=== PATIENT | female | born 1975 | race African-American/Black ===

== ENCOUNTER 2017-06-23 16:04 | Emergency (ER) | payer MEDICARE, OTHER ==
[~2017-06-23] VITALS: Ht 157.5 cm; Wt 68.0 kg
[2017-06-23] MEDS ORDERED: HYDR2TAB4 PO (16:35)
[2017-06-23] MEDS ORDERED: OXYCODONE (16:35)
[2017-06-23] MEDS: ONDANSETRON ODT 4 MG TAB.RAPDIS SL ONE (17:01)
[2017-06-23] MEDS: diphenhydrAMINE 50 MG/1 ML VIAL IM ONE (17:02)
[2017-06-23] MEDS: HYDROMORPHONE 1 MG/1 ML DISP.SYRIN IM ONE (17:04)
[2017-06-23] MEDS ORDERED: ONDANSETRON ODT 4 MG TAB.RAPDIS ONE (17:13)
[2017-06-23] MEDS ORDERED: diphenhydrAMINE 50 MG/1 ML VIAL ONE (17:13)
[2017-06-23] MEDS ORDERED: HYDROMORPHONE 4 MG/1 ML DISP.SYRIN ONE (17:14)
--- NOTE | 2017-06-23 17:17 | NUR ---
Patient discharged to home in stable conditon. Written and verbal after care instructions given. Patient verbalizes understanding of instructions.
[2017-06-23 17:18] VITALS: BP 110/74
== END 2017-06-23 17:17 | disposition home or self-care (01) ==
LOC: ER 16:05
DX: D57.00 Hb-SS disease with crisis, unspecified (principal); Z88.5 Allergy status to narcotic agent
CPT/HCPCS: 96372 ×2; 99284; A4663; J1170; J1200; Q0162

== ENCOUNTER 2017-07-28 18:10 | Inpatient (IN) | payer MEDICARE, OTHER ==
[~2017-07-28] VITALS: Ht 162.6 cm; Wt 72.1 kg
[~2017-07-28 18:10] MED LIST: HYDR2TAB4 PO; OXYCODONE
[2017-07-28] MEDS ORDERED: HYDR4TAB4 PO (18:32)
[2017-07-28] MEDS ORDERED: DIPH25CA83 PO (18:32)
[2017-07-28] MEDS ORDERED: OXYC-133 PO (18:34)
[2017-07-28] MEDS ORDERED: ACET-1467 PO (18:34)
[2017-07-28 20:18] LABS: HEMATOCRIT 25.9 % (31.2-41.9); MONOCYTES # (AUTO) 0.9 K/uL (2.0-10.0)
[2017-07-28 20:23] LABS: BASOPHILS # (AUTO) 0.2 K/uL (0.0-8.0); BASOPHILS % (AUTO) 2.7 % (0.0-2.0); EOSINOPHILS # (AUTO) 0.9 K/uL (0.0-0.7); HEMOGLOBIN 8.7 g/dL (10.9-14.3); LYMPHOCYTES # (AUTO) 3.4 K/uL (20.0-40.0); LYMPHOCYTES % (AUTO) 39.1 % (20.5-51.5); MEAN CORPUSCULAR HEMOGLOBIN 32.3 uug (24.7-32.8); MEAN CORPUSCULAR HGB CONC 34 g/dL (32.3-35.6); MEAN CORPUSCULAR VOLUME 96.1 fL (75.5-95.3); MONOCYTES % (AUTO) 10.2 % (0.0-11.0); NEUTROPHILS # (AUTO) 3.2 K/uL (1.8-8.9); PLATELET COUNT (AUTO) 131 K/uL (179-408); WHITE BLOOD COUNT (AUTO) 8.6 K/uL (3.8-11.8)
[2017-07-28 20:25] LABS: CREATININE 0.8 mg/dL (0.6-1.3); POTASSIUM 3.3 mmol/L (3.5-5.1)
[2017-07-28 20:31] LABS: BILIRUBIN,DIRECT 1.2 mg/dL (0.0-0.2); BILIRUBIN,TOTAL 2.5 mg/dL (0.2-1.0)
[2017-07-28 21:00] LABS: BAND % (MANUAL) 5 % (0-10); EOSINOPHILS % (MANUAL) 12 % (0-8); LYMPHOCYTES % (MANUAL) 42 % (20-40); MONOCYTES % (MANUAL) 11 % (2-10); NEUTROPHILS % (MANUAL) 30 % (42-75)
[2017-07-28] MEDS ORDERED: HYDROMORPHONE 1 MG/1 ML DISP.SYRIN IM ONE (21:15)
[2017-07-28] MEDS ORDERED: diphenhydrAMINE 50 MG/1 ML VIAL IM ONE (21:15)
[2017-07-28] MEDS ORDERED: ONDANSETRON 4 MG/2 ML VIAL IM ONE (21:15)
[2017-07-28] MEDS ORDERED: ASPIRIN 325 MG TABLET PO ONE (22:00)
[2017-07-28] MEDS ORDERED: ASPIRIN 325 MG TABLET ONE (22:18)
[2017-07-28] MEDS ORDERED: diphenhydrAMINE 50 MG/1 ML VIAL ONE (22:19)
[2017-07-28] MEDS ORDERED: ONDANSETRON 4 MG/2 ML VIAL ONE (22:19)
[2017-07-28] MEDS ORDERED: HYDROMORPHONE 2 MG/1 ML DISP.SYRIN ONE (22:19)
[2017-07-28 23:39] VITALS: BP 135/77
[2017-07-29] MEDS ORDERED: Z GUARD REMEDY PASTE 57 GM TUBE TOP PRN
[2017-07-29] MEDS ORDERED: HYDROMORPHONE HCL 2 MG TABLET PO PRN
[2017-07-29] MEDS ORDERED: MAGNESIUM HYDROXIDE 30 ML LIQUID UDC PO PRN
[2017-07-29] MEDS ORDERED: ONDANSETRON 4 MG/2 ML VIAL IV PRN
[2017-07-29] MEDS: IV NS 1000 ML 1,000 ML IV PRN ×2 (00:25→18:18)
[2017-07-29] MEDS ORDERED: OXYCODONE HCL 20 MG TAB.SR.12H PO ONE (00:30)
[2017-07-29] MEDS ORDERED: ACETAMINOPHEN 325 MG TABLET PO PRN ×2 (00:51)
[2017-07-29] MEDS: HYDROMORPHONE HCL 2 MG TABLET PO PRN ×6 (00:53→22:19)
[2017-07-29] MEDS: diphenhydrAMINE 50 MG/1 ML VIAL IV PRN ×4 (00:53→18:17)
[2017-07-29 04:44] VITALS: BP 118/79
[2017-07-29 08:08] LABS: BASOPHILS # (AUTO) 0.2 K/uL (0.0-8.0); BASOPHILS % (AUTO) 2.1 % (0.0-2.0); EOSINOPHILS % (AUTO) 10.1 % (0.0-7.0); HEMATOCRIT 22.9 % (31.2-41.9); LYMPHOCYTES # (AUTO) 4.9 K/uL (20.0-40.0); LYMPHOCYTES % (AUTO) 51.4 % (20.5-51.5); MEAN CORPUSCULAR HEMOGLOBIN 32.3 uug (24.7-32.8); MEAN CORPUSCULAR HGB CONC 33 g/dL (32.3-35.6); MONOCYTES # (AUTO) 0.9 K/uL (2.0-10.0); MONOCYTES % (AUTO) 9.7 % (0.0-11.0); NEUTROPHILS # (AUTO) 2.5 K/uL (1.8-8.9); NEUTROPHILS % (AUTO) 26.7 % (38.5-71.5); PLATELET COUNT (AUTO) 89 K/uL (179-408); WHITE BLOOD COUNT (AUTO) 9.5 K/uL (3.8-11.8)
[2017-07-29 08:22] LABS: RED BLOOD CELL COUNT(AUTO) 2.36 MIL/uL (3.63-4.92)
[2017-07-29 08:28] LABS: HEMOGLOBIN 7.6 g/dL (10.9-14.3)
[2017-07-29 08:36] LABS: BILIRUBIN,TOTAL 2.3 mg/dL (0.2-1.0); CREATININE 0.8 mg/dL (0.6-1.3); MAGNESIUM 1.7 mg/dL (1.8-2.4); PHOSPHOROUS 3.7 mg/dL (2.5-4.9); TOTAL PROTEIN, SERUM 7.2 g/dL (6.4-8.2)
[2017-07-29] MEDS: ASPIRIN EC 81 MG TABLET.DR PO SCH (10:16)
[2017-07-29] MEDS: FOLIC ACID 1 MG TABLET PO SCH (10:16)
[2017-07-29] MEDS: HYDROXYUREA 500 MG CAPSULE PO SCH (10:20)
[2017-07-29 11:24] VITALS: BP 109/53
[2017-07-29 11:40] LABS: BAND % (MANUAL) 2 % (0-10); EOSINOPHILS % (MANUAL) 6 % (0-8); LYMPHOCYTES % (MANUAL) 57 % (20-40); MONOCYTES % (MANUAL) 5 % (2-10); NEUTROPHILS % (MANUAL) 30 % (42-75)
[2017-07-29] MEDS: MAGNESIUM SULFATE/D5W 100 ML IV SCH ×2 (12:56→14:22)
[2017-07-29 14:55] LABS: *BILIRUBIN,URIN NEGATIVE (NEGATIVE); *BLOOD, URINE NEGATIVE (NEGATIVE); *CLARITY,URINE CLEAR (CLEAR); *KETONES,URINE NEGATIVE (NEGATIVE); *PROTEIN,URINE NEGATIVE (NEGATIVE); LEUKOCYTE ESTERASE ,URINE NEGATIVE (NEGATIVE); NITRITE, URINE NEGATIVE (NEGATIVE); PH,URINE 6.5 (5.0-8.0); UGLUCOSE NEGATIVE (NEGATIVE)
[2017-07-29 15:42] VITALS: BP 112/60
[2017-07-29 16:34] LABS: *COLOR,URINE DARK YELLOW (YELLOW)
[2017-07-29 16:39] LABS: SQUAMOUS EPITHELIAL CELL,UR FEW /HPF (NONE SEEN); WBC,URINE 0-3 /HPF (0-3)
[2017-07-29 20:00] VITALS: BP 113/64
[2017-07-29] MEDS: ZOLPIDEM 5 MG TABLET PO PRN (22:34)
[2017-07-30] VITALS: BP 115/64
[2017-07-30] MEDS: diphenhydrAMINE 50 MG/1 ML VIAL IV PRN ×5 (00:04→23:51)
[2017-07-30] MEDS: HYDROMORPHONE HCL 2 MG TABLET PO PRN ×4 (03:18→15:59)
[2017-07-30 04:00] VITALS: BP 134/72
[2017-07-30] MEDS: FOLIC ACID 1 MG TABLET PO SCH (08:03)
[2017-07-30] MEDS: ASPIRIN EC 81 MG TABLET.DR PO SCH (08:03)
[2017-07-30] MEDS: HYDROXYUREA 500 MG CAPSULE PO SCH (08:09)
[2017-07-30] MEDS: IV NS 1000 ML 1,000 ML IV PRN (08:09)
[2017-07-30 09:48] LABS: CARBON DIOXIDE 29 mmol/L (21-32); CHLORIDE 105 mmol/L (98-107); CREATININE 0.6 mg/dL (0.6-1.3); GLUCOSE 92 mg/dL (74-106); MAGNESIUM 1.5 mg/dL (1.8-2.4); POTASSIUM 3.8 mmol/L (3.5-5.1); UREA NITROGEN, BLOOD 10 mg/dL (7-18)
[2017-07-30] MEDS: MAGNESIUM SULFATE/D5W 100 ML IV SCH ×2 (10:48→11:56)
[2017-07-30 11:25] VITALS: BP 141/70
[2017-07-30 15:58] VITALS: BP 133/75
[2017-07-30] MEDS ORDERED: HYDROMORPHONE HCL 2 MG TABLET PO PRN ×2 (17:45)
[2017-07-30] MEDS: HYDROMORPHONE 2 MG/1 ML DISP.SYRIN IV PRN ×3 (18:01→23:52)
[2017-07-30 19:45] VITALS: BP 123/73
[2017-07-31] VITALS (7 sets, daily range): BP systolic 123–159; BP diastolic 67–86
[2017-07-31] MEDS: IV NS 1000 ML 1,000 ML IV PRN ×2 (00:08→13:57)
[2017-07-31] MEDS: ZOLPIDEM 5 MG TABLET PO PRN ×2 (00:53→21:04)
[2017-07-31] MEDS: HYDROMORPHONE 2 MG/1 ML DISP.SYRIN IV PRN ×6 (03:04→22:05)
[2017-07-31] MEDS: diphenhydrAMINE 50 MG/1 ML VIAL IV PRN ×3 (05:55→19:42)
[2017-07-31 06:45] LABS: CREATININE 0.8 mg/dL (0.6-1.3); MAGNESIUM 1.5 mg/dL (1.8-2.4)
[2017-07-31] MEDS: ASPIRIN EC 81 MG TABLET.DR PO SCH (08:20)
[2017-07-31] MEDS: FOLIC ACID 1 MG TABLET PO SCH (08:20)
[2017-07-31] MEDS: HYDROXYUREA 500 MG CAPSULE PO SCH (08:22)
[2017-07-31] MEDS: MAGNESIUM SULFATE/D5W 100 ML IV SCH ×4 (13:55→17:10)
[2017-07-31] MEDS ORDERED: FOLI1TAB16 PO (23:55)
[2017-07-31] MEDS ORDERED: HYDR500C2 PO (23:55)
[2017-08-01] VITALS: BP 136/73
[2017-08-01] MEDS: HYDROMORPHONE 2 MG/1 ML DISP.SYRIN IV PRN ×5 (01:14→15:31)
[2017-08-01] MEDS: diphenhydrAMINE 50 MG/1 ML VIAL IV PRN ×3 (02:03→14:20)
[2017-08-01 04:00] VITALS: BP 144/78
[2017-08-01 06:43] LABS: CREATININE 0.7 mg/dL (0.6-1.3); MAGNESIUM 1.8 mg/dL (1.8-2.4); PHOSPHOROUS 3.5 mg/dL (2.5-4.9); POTASSIUM 4.8 mmol/L (3.5-5.1)
[2017-08-01 07:46] LABS: BASOPHILS # (AUTO) 0.2 K/uL (0.0-8.0); BASOPHILS % (AUTO) 2.9 % (0.0-2.0); EOSINOPHILS % (AUTO) 23.8 % (0.0-7.0); HEMATOCRIT 26.2 % (31.2-41.9); HEMOGLOBIN 8.8 g/dL (10.9-14.3); LYMPHOCYTES # (AUTO) 2.1 K/uL (20.0-40.0); MEAN CORPUSCULAR HEMOGLOBIN 32.3 uug (24.7-32.8); MEAN CORPUSCULAR HGB CONC 34 g/dL (32.3-35.6); MEAN CORPUSCULAR VOLUME 96.5 fL (75.5-95.3); MONOCYTES # (AUTO) 1.1 K/uL (2.0-10.0); MONOCYTES % (AUTO) 12.9 % (0.0-11.0); NEUTROPHILS # (AUTO) 2.8 K/uL (1.8-8.9); NEUTROPHILS % (AUTO) 34.4 % (38.5-71.5); PLATELET COUNT (AUTO) 122 K/uL (179-408); RED BLOOD CELL COUNT(AUTO) 2.71 MIL/uL (3.63-4.92); WHITE BLOOD COUNT (AUTO) 8.2 K/uL (3.8-11.8)
[2017-08-01 08:28] LABS: BAND % (MANUAL) 1 % (0-10); EOSINOPHILS % (MANUAL) 20 % (0-8); LYMPHOCYTES % (MANUAL) 42 % (20-40); MONOCYTES % (MANUAL) 10 % (2-10); NEUTROPHILS % (MANUAL) 27 % (42-75)
[2017-08-01] MEDS ORDERED: ASPIRIN EC 81 MG TABLET.DR PO SCH (09:00)
[2017-08-01] MEDS: IV NS 1000 ML 1,000 ML IV PRN (09:13)
[2017-08-01] MEDS: FOLIC ACID 1 MG TABLET PO SCH (09:23)
[2017-08-01] MEDS: HYDROXYUREA 500 MG CAPSULE PO SCH (09:24)
[2017-08-01 11:22] VITALS: BP 138/73
[2017-08-01 15:06] VITALS: BP 133/70
== END 2017-08-01 17:00 | disposition home or self-care (01) | DRG 811 ==
LOC: ER 18:10 → TELE 22:57
PROVIDERS: ADMIT Nurse Practitioner Acute Care; ATTEND Nurse Practitioner Acute Care
DX: D57.00 Hb-SS disease with crisis, unspecified (principal); I21.A1 Myocardial infarction type 2; D69.6 Thrombocytopenia, unspecified; E46 Unspecified protein-calorie malnutrition; E83.42 Hypomagnesemia; F11.23 Opioid dependence with withdrawal; Z68.27 Body mass index [BMI] 27.0-27.9, adult; Z87.891 Personal history of nicotine dependence; G89.4 Chronic pain syndrome; E87.6 Hypokalemia; R74.0 Nonspecific elevation of levels of transaminase and lactic acid dehydrogenase [LDH]; I51.7 Cardiomegaly; Z76.5 Malingerer [conscious simulation]
CPT/HCPCS: 36415; 70030-TC; 71045; 83735; 84100; 85025; 85730; 93005; 93307; A4663; J1170; J1200; J2405; J3475; J7030

== ENCOUNTER 2017-08-05 16:45 | Emergency (ER) | payer MEDICARE, OTHER ==
[~2017-08-05] VITALS: Ht 162.6 cm; Wt 68.0 kg
[~2017-08-05 16:45] MED LIST changes: +ACET-1467 PO; +DIPH25CA83 PO; +FOLI1TAB16 PO; -HYDR2TAB4 PO; +HYDR4TAB4 PO; +HYDR500C2 PO; -OXYCODONE
--- NOTE | 2017-08-05 17:14 | NUR ---
PATIENT WAS SEEN AND EVALUATED BY DR GALARZA IN ROOM 05A.
[2017-08-05] MEDS ORDERED: HYDROMORPHONE 1 MG/1 ML DISP.SYRIN IM ONE (17:15)
[2017-08-05] MEDS ORDERED: diphenhydrAMINE 50 MG/1 ML VIAL IM ONE (17:15)
--- NOTE | 2017-08-05 17:26 | NUR ---
Patient discharged to home in stable conditon. Written and verbal after care instructions given. Patient verbalizes understanding of instructions. Normal steady gait. No s/s distress.
[2017-08-05 17:27] VITALS: BP 144/75
[2017-08-05] MEDS ORDERED: HYDROMORPHONE 2 MG/1 ML DISP.SYRIN ONE (17:35)
[2017-08-05] MEDS ORDERED: diphenhydrAMINE 50 MG/1 ML VIAL ONE (17:35)
== END 2017-08-05 17:28 | disposition home or self-care (01) ==
LOC: ER 16:46
DX: D57.00 Hb-SS disease with crisis, unspecified (principal); Z88.5 Allergy status to narcotic agent
CPT/HCPCS: A4663; J1170; J1200

== ENCOUNTER 2017-08-05 18:44 | Emergency (ER) | payer MEDICARE, OTHER ==
[~2017-08-05] VITALS: Ht 165.1 cm; Wt 68.0 kg
--- NOTE | 2017-08-05 19:30 | NUR ---
RADHA STEVENS AT BEDSIDE FOR MSE.
[2017-08-05 20:07] LABS: BASOPHILS # (AUTO) 0.2 K/uL (0.0-8.0); BASOPHILS % (AUTO) 1.7 % (0.0-2.0); EOSINOPHILS # (AUTO) 0.4 K/uL (0.0-0.7); EOSINOPHILS % (AUTO) 4.6 % (0.0-7.0); HEMATOCRIT 28.1 % (31.2-41.9); HEMOGLOBIN 9.5 g/dL (10.9-14.3); LYMPHOCYTES # (AUTO) 5.7 K/uL (20.0-40.0); LYMPHOCYTES % (AUTO) 61.8 % (20.5-51.5); MEAN CORPUSCULAR HEMOGLOBIN 31.8 uug (24.7-32.8); MEAN CORPUSCULAR HGB CONC 34 g/dL (32.3-35.6); MEAN CORPUSCULAR VOLUME 94.3 fL (75.5-95.3); MONOCYTES # (AUTO) 0.7 K/uL (2.0-10.0); MONOCYTES % (AUTO) 7.7 % (0.0-11.0); NEUTROPHILS # (AUTO) 2.2 K/uL (1.8-8.9); NEUTROPHILS % (AUTO) 24.2 % (38.5-71.5); PLATELET COUNT (AUTO) 194 K/uL (179-408); RED BLOOD CELL COUNT(AUTO) 2.98 MIL/uL (3.63-4.92); WHITE BLOOD COUNT (AUTO) 9.1 K/uL (3.8-11.8)
--- NOTE | 2017-08-05 20:17 | NUR ---
PT STATES SHE IS UNABLE TO USE RESTROOM AT THE MOMENT. PENDING COLLECTION OF URINE SAMPLE.
[2017-08-05 20:22] LABS: BILIRUBIN,TOTAL 2.5 mg/dL (0.2-1.0); CREATININE 0.9 mg/dL (0.6-1.3); POTASSIUM 3.5 mmol/L (3.5-5.1); TOTAL PROTEIN, SERUM 8.7 g/dL (6.4-8.2)
[2017-08-05 20:24] LABS: BAND % (MANUAL) 3 % (0-10); EOSINOPHILS % (MANUAL) 7 % (0-8); LYMPHOCYTES % (MANUAL) 56 % (20-40); MONOCYTES % (MANUAL) 12 % (2-10); NEUTROPHILS % (MANUAL) 22 % (42-75)
--- NOTE | 2017-08-05 21:42 | NUR ---
PT RESTING IN A POSITION OF COMFORT W/ EYES CLOSED. NO SIGNS OF DISTRESS NOTED.
--- NOTE | 2017-08-05 22:04 | NUR ---
PT AMBULATED TO BATHROOM W/ STEADY GAIT. NO DISTRESS NOTED.
[2017-08-05 23:06] LABS: *BILIRUBIN,URIN 1+ (NEGATIVE); *BLOOD, URINE 2+ (NEGATIVE); *CLARITY,URINE SLIGHTLY CLOUDY (CLEAR); *COLOR,URINE AMBER (YELLOW); *KETONES,URINE NEGATIVE (NEGATIVE); *PROTEIN,URINE 1+ (NEGATIVE); LEUKOCYTE ESTERASE ,URINE NEGATIVE (NEGATIVE); NITRITE, URINE NEGATIVE (NEGATIVE); UGLUCOSE NEGATIVE (NEGATIVE)
[2017-08-05 23:13] LABS: BACTERIA,URINE FEW /HPF (NONE SEEN); WBC,URINE 0-3 /HPF (0-3)
[2017-08-05 23:14] LABS: SQUAMOUS EPITHELIAL CELL,UR MODERATE /HPF (NONE SEEN)
[2017-08-05] MEDS ORDERED: diphenhydrAMINE 50 MG CAPSULE PO ONE (23:30)
[2017-08-05] MEDS ORDERED: HYDROMORPHONE 1 MG/1 ML DISP.SYRIN IM ONE (23:30)
[2017-08-05] MEDS ORDERED: OXYCODONE/APAP 5-325 MG TABLET PO ONE (23:30)
--- NOTE | 2017-08-05 23:30 | NUR ---
Patient discharged to home in stable conditon. Written and verbal after care instructions given. Patient verbalizes understanding of instructions. Pt ambulated w/ steady gait from ER. Pt took all personal belongings. No distress noted.
[2017-08-05] MEDS ORDERED: HYDROMORPHONE 2 MG/1 ML DISP.SYRIN ONE (23:41)
[2017-08-05] MEDS ORDERED: diphenhydrAMINE 50 MG CAPSULE ONE (23:42)
[2017-08-06 01:13] VITALS: BP 156/89
== END 2017-08-06 01:14 | disposition home or self-care (01) ==
LOC: ER 18:45
DX: D57.00 Hb-SS disease with crisis, unspecified (principal); Z88.5 Allergy status to narcotic agent; R07.9 Chest pain, unspecified
CPT/HCPCS: 36415; 70030-TC; 71045; 85025; 93005; A4663; J1170; Q0163

== ENCOUNTER 2017-08-23 14:43 | Emergency (ER) | payer MEDICARE, OTHER ==
[~2017-08-23] VITALS: Ht 162.6 cm; Wt 68.0 kg
[~2017-08-23 14:43] MED LIST changes: -ACET-1467 PO
[2017-08-23] MEDS ORDERED: OXYC80TA40 PO (15:12)
[2017-08-23] MEDS ORDERED: METO50TA16 PO (15:13)
--- NOTE | 2017-08-23 17:00 | NUR ---
DR PACHECO AT BEDSIDE FOR EVAL. PATIENT IS AWAKE, ALERT, ORIENTED X4 IN NO DISTRESS.
[2017-08-23] MEDS ORDERED: HYDROMORPHONE 1 MG/1 ML DISP.SYRIN IM ONE (17:30)
[2017-08-23] MEDS ORDERED: diphenhydrAMINE 50 MG/1 ML VIAL IM ONE (17:30)
[2017-08-23] MEDS ORDERED: diphenhydrAMINE 50 MG/1 ML VIAL ONE (17:31)
[2017-08-23] MEDS ORDERED: HYDROMORPHONE 2 MG/1 ML DISP.SYRIN ONE (17:31)
--- NOTE | 2017-08-23 17:49 | NUR ---
PATIENT STATES HER BROTHER DROVE HER HERE AND WILL DRIVE HER BACK HOME. STATES SHE KNOWS NOT TO DRIVE WHEN ON NARCOTICS AND BENADRYL.
--- NOTE | 2017-08-23 18:22 | NUR ---
Patient discharged to home in stable conditon. Written and verbal after care instructions given. Patient verbalizes understanding of instructions.
== END 2017-08-23 18:23 | disposition home or self-care (01) ==
LOC: ER 14:44
DX: F11.23 Opioid dependence with withdrawal (principal); Z88.5 Allergy status to narcotic agent; Z79.891 Long term (current) use of opiate analgesic; Z79.899 Other long term (current) drug therapy
CPT/HCPCS: A4663; J1170; J1200

== ENCOUNTER 2017-10-29 22:02 | Inpatient (IN) | payer MEDICARE, OTHER ==
[~2017-10-29] VITALS: Ht 162.6 cm; Wt 74.5 kg
[~2017-10-29 22:02] MED LIST changes: -HYDR500C2 PO; +METO50TA16 PO; +OXYC80TA40 PO
[2017-10-29] MEDS ORDERED: ONDANSETRON ODT 4 MG TAB.RAPDIS ONE (22:28)
[2017-10-29] MEDS ORDERED: HYDROMORPHONE HCL 2 MG TABLET ONE (22:29)
[2017-10-29] MEDS ORDERED: diphenhydrAMINE 50 MG CAPSULE ONE (22:29)
[2017-10-29] MEDS ORDERED: ONDANSETRON ODT 4 MG TAB.RAPDIS SL ONE (22:30)
[2017-10-29] MEDS ORDERED: diphenhydrAMINE 50 MG CAPSULE PO ONE (22:30)
[2017-10-29] MEDS ORDERED: IV NORMAL SALINE 1000 ML BAG IV ONE (22:30)
[2017-10-29] MEDS ORDERED: HYDROMORPHONE HCL 2 MG TABLET PO ONE (22:30)
[2017-10-29 22:51] LABS: BASOPHILS # (AUTO) 0.2 K/uL (0.0-8.0); BASOPHILS % (AUTO) 1.4 % (0.0-2.0); EOSINOPHILS # (AUTO) 0.3 K/uL (0.0-0.7); EOSINOPHILS % (AUTO) 2.7 % (0.0-7.0); HEMATOCRIT 27.6 % (31.2-41.9); HEMOGLOBIN 9.5 g/dL (10.9-14.3); LYMPHOCYTES # (AUTO) 3.7 K/uL (20.0-40.0); LYMPHOCYTES % (AUTO) 32.5 % (20.5-51.5); MEAN CORPUSCULAR HEMOGLOBIN 29.2 uug (24.7-32.8); MEAN CORPUSCULAR HGB CONC 34 g/dL (32.3-35.6); MEAN CORPUSCULAR VOLUME 85.4 fL (75.5-95.3); MONOCYTES # (AUTO) 1.3 K/uL (2.0-10.0); MONOCYTES % (AUTO) 10.9 % (0.0-11.0); NEUTROPHILS % (AUTO) 52.5 % (38.5-71.5); PLATELET COUNT (AUTO) 122 K/uL (179-408); RED BLOOD CELL COUNT(AUTO) 3.23 MIL/uL (3.63-4.92); WHITE BLOOD COUNT (AUTO) 11.5 K/uL (3.8-11.8)
[2017-10-29 22:58] LABS: CREATININE 3.4 mg/dL (0.6-1.3); POTASSIUM 4.4 mmol/L (3.5-5.1)
[2017-10-29 23:03] LABS: BILIRUBIN,DIRECT 1.4 mg/dL (0.0-0.2); BILIRUBIN,TOTAL 2.9 mg/dL (0.2-1.0); TOTAL PROTEIN, SERUM 9.3 g/dL (6.4-8.2)
[2017-10-29] MEDS ORDERED: Z GUARD REMEDY PASTE 57 GM TUBE TOP PRN (23:45)
[2017-10-29] MEDS ORDERED: ACETAMINOPHEN 325 MG TABLET PO PRN (23:45)
[2017-10-29] MEDS ORDERED: FOLIC ACID 1 MG in IV DEXTROSE 5% 50 ML IV SCH (23:45)
[2017-10-29] MEDS ORDERED: ONDANSETRON 4 MG/2 ML VIAL IV PRN (23:45)
[2017-10-29] MEDS ORDERED: MAGNESIUM HYDROXIDE 30 ML LIQUID UDC PO PRN (23:45)
[2017-10-29 23:59] LABS: BAND % (MANUAL) 1 % (0-10); BASOPHILS % (MANUAL) 1 % (0-2); EOSINOPHILS % (MANUAL) 3 % (0-8); LYMPHOCYTES % (MANUAL) 13 % (20-40); MONOCYTES % (MANUAL) 14 % (2-10); NEUTROPHILS % (MANUAL) 68 % (42-75)
[2017-10-30] LABS: *BLOOD, URINE 2+ (NEGATIVE); *CLARITY,URINE CLEAR (CLEAR); *COLOR,URINE YELLOW (YELLOW); *KETONES,URINE NEGATIVE (NEGATIVE); *PROTEIN,URINE 2+ (NEGATIVE); LEUKOCYTE ESTERASE ,URINE NEGATIVE (NEGATIVE); NITRITE, URINE NEGATIVE (NEGATIVE); PH,URINE 5.5 (5.0-8.0); UGLUCOSE NEGATIVE (NEGATIVE)
[2017-10-30 00:03] LABS: *BILIRUBIN,URIN 1+ (NEGATIVE)
[2017-10-30 00:10] LABS: BACTERIA,URINE FEW /HPF (NONE SEEN); MUCUS,URINE FEW /LPF (0-FEW); SQUAMOUS EPITHELIAL CELL,UR FEW /HPF (NONE SEEN); WBC,URINE 0-3 /HPF (0-3)
[2017-10-30 00:47] VITALS: BP 113/51
[2017-10-30] MEDS: IV 1/2NS 1000 ML 1,000 ML IV PRN ×3 (01:01→17:00)
[2017-10-30 04:00] VITALS: BP 108/59
[2017-10-30] MEDS: HYDROMORPHONE HCL 2 MG TABLET PO SCH ×7 (04:49→20:14)
[2017-10-30] MEDS ORDERED: HYDROMORPHONE HCL 2 MG TABLET PO SCH (08:00)
[2017-10-30] MEDS: FOLIC ACID 1 MG TABLET PO SCH (08:35)
[2017-10-30] MEDS: HYDROCODONE/APAP 5-325MG TABLET PO PRN ×2 (08:35→22:25)
[2017-10-30] MEDS ORDERED: FOLIC ACID 1 MG in IV DEXTROSE 5% 50 ML IV SCH (09:00)
[2017-10-30] MEDS ORDERED: WARF7.5T23 PO (09:05)
[2017-10-30 09:28] LABS: BILIRUBIN,TOTAL 2.1 mg/dL (0.2-1.0); CREATININE 1.8 mg/dL (0.6-1.3); MAGNESIUM 2.3 mg/dL (1.8-2.4); PHOSPHOROUS 3.7 mg/dL (2.5-4.9); POTASSIUM 4.6 mmol/L (3.5-5.1); TOTAL PROTEIN, SERUM 7.2 g/dL (6.4-8.2)
[2017-10-30] MEDS: HYDROXYUREA 500 MG CAPSULE PO SCH (10:27)
[2017-10-30 10:46] LABS: *CREATININE,URINE 165.2 mg/dL (30-125); *URINE TOTAL PROTEIN RANDOM 111.8 mg/dL (<150/24HR)
[2017-10-30 11:38] VITALS: BP 95/53
[2017-10-30] MEDS ORDERED: OXYCODONE HCL PO SCH (13:15)
[2017-10-30] MEDS: METOPROLOL TARTRATE 50 MG TABLET PO SCH ×2 (13:15→16:14)
[2017-10-30] MEDS ORDERED: WARFARIN SODIUM 7.5 MG TABLET PO SCH (13:15)
[2017-10-30 15:28] VITALS: BP 95/54
[2017-10-30] MEDS: WARFARIN SODIUM 7.5 MG TABLET PO SCH (16:46)
[2017-10-30 18:31] VITALS: BP 108/61
[2017-10-30 23:26] VITALS: BP 110/53
[2017-10-31 00:05] VITALS: BP 105/59
[2017-10-31] MEDS: HYDROMORPHONE HCL 2 MG TABLET PO SCH ×6 (00:24→19:51)
[2017-10-31] MEDS: IV 1/2NS 1000 ML 1,000 ML IV PRN ×3 (03:14→21:44)
[2017-10-31 04:10] VITALS: BP 110/64
[2017-10-31 04:31] LABS: *BILIRUBIN,URIN NEGATIVE (NEGATIVE); *BLOOD, URINE NEGATIVE (NEGATIVE); *CLARITY,URINE CLEAR (CLEAR); *COLOR,URINE YELLOW (YELLOW); *KETONES,URINE NEGATIVE (NEGATIVE); *PROTEIN,URINE NEGATIVE (NEGATIVE); LEUKOCYTE ESTERASE ,URINE NEGATIVE (NEGATIVE); NITRITE, URINE NEGATIVE (NEGATIVE); UGLUCOSE NEGATIVE (NEGATIVE)
[2017-10-31 04:39] LABS: BACTERIA,URINE FEW /HPF (NONE SEEN); RBC,URINE 0-3 /HPF (0-3); SQUAMOUS EPITHELIAL CELL,UR MODERATE /HPF (NONE SEEN); WBC,URINE 0-3 /HPF (0-3)
[2017-10-31 04:43] LABS: *CREATININE,URINE 54.9 mg/dL (30-125); *URINE TOTAL PROTEIN RANDOM 18.5 mg/dL (<150/24HR)
[2017-10-31] MEDS: HYDROCODONE/APAP 5-325MG TABLET PO PRN ×3 (06:29→21:43)
[2017-10-31] MEDS: FOLIC ACID 1 MG TABLET PO SCH (08:20)
[2017-10-31] MEDS: METOPROLOL TARTRATE 50 MG TABLET PO SCH ×2 (08:21→19:52)
[2017-10-31] MEDS: HYDROXYUREA 500 MG CAPSULE PO SCH (08:23)
[2017-10-31 08:31] VITALS: BP 105/63
[2017-10-31] MEDS ORDERED: FOLIC ACID 1 MG TABLET PO SCH ×2 (09:00)
[2017-10-31 09:05] LABS: BILIRUBIN,TOTAL 1.3 mg/dL (0.2-1.0); CREATININE 0.9 mg/dL (0.6-1.3); MAGNESIUM 1.9 mg/dL (1.8-2.4); POTASSIUM 5.2 mmol/L (3.5-5.1); TOTAL PROTEIN, SERUM 7.4 g/dL (6.4-8.2)
[2017-10-31 09:13] LABS: BASOPHILS # (AUTO) 0.1 K/uL (0.0-8.0); EOSINOPHILS # (AUTO) 0.7 K/uL (0.0-0.7); EOSINOPHILS % (AUTO) 6.6 % (0.0-7.0); HEMATOCRIT 23.4 % (31.2-41.9); HEMOGLOBIN 7.9 g/dL (10.9-14.3); LYMPHOCYTES # (AUTO) 4.9 K/uL (20.0-40.0); LYMPHOCYTES % (AUTO) 44.1 % (20.5-51.5); MEAN CORPUSCULAR HEMOGLOBIN 29.2 uug (24.7-32.8); MEAN CORPUSCULAR HGB CONC 34 g/dL (32.3-35.6); MONOCYTES # (AUTO) 1.6 K/uL (2.0-10.0); MONOCYTES % (AUTO) 13.9 % (0.0-11.0); NEUTROPHILS # (AUTO) 3.9 K/uL (1.8-8.9); NEUTROPHILS % (AUTO) 34.4 % (38.5-71.5); PLATELET COUNT (AUTO) 100 K/uL (179-408); RED BLOOD CELL COUNT(AUTO) 2.69 MIL/uL (3.63-4.92); WHITE BLOOD COUNT (AUTO) 11.2 K/uL (3.8-11.8)
[2017-10-31 10:22] LABS: EOSINOPHILS % (MANUAL) 7 % (0-8); LYMPHOCYTES % (MANUAL) 39 % (20-40); MONOCYTES % (MANUAL) 16 % (2-10); NEUTROPHILS % (MANUAL) 38 % (42-75)
[2017-10-31] MEDS ORDERED: NEUTRA PHOS PACKET PO ONE (15:30)
[2017-10-31] MEDS: WARFARIN SODIUM 7.5 MG TABLET PO SCH (16:48)
[2017-10-31 20:12] VITALS: BP 108/54
[2017-11-01] MEDS: HYDROMORPHONE HCL 2 MG TABLET PO SCH ×4 (00:06→12:26)
[2017-11-01 04:00] VITALS: BP 106/61
[2017-11-01] MEDS: IV 1/2NS 1000 ML 1,000 ML IV PRN ×2 (07:22→21:11)
[2017-11-01 07:43] LABS: CREATININE 0.7 mg/dL (0.6-1.3); PHOSPHOROUS 2.7 mg/dL (2.5-4.9); POTASSIUM 5.4 mmol/L (3.5-5.1)
[2017-11-01 08:09] LABS: A/G RATIO 0.7 (0.7-1.7); ALPHA-1-GLOBULIN 0.3 g/dL (0.0-0.4); ALPHA-2-GLOBULIN 0.5 g/dL (0.4-1.0); BETA GLOBULIN 1.1 g/dL (0.7-1.3); GAMMA GLOBULIN 2.2 g/dL (0.4-1.8); GLOBULIN, TOTAL 4.1 g/dL (2.2-3.9); M-SPIKE Not Observed g/dL (Not Observed)
[2017-11-01] MEDS: FOLIC ACID 1 MG TABLET PO SCH (09:06)
[2017-11-01] MEDS: METOPROLOL TARTRATE 50 MG TABLET PO SCH ×2 (09:07→20:04)
[2017-11-01] MEDS: HYDROXYUREA 500 MG CAPSULE PO SCH (09:16)
[2017-11-01 10:06] VITALS: BP 127/81
[2017-11-01] MEDS ORDERED: SODIUM POLYSTYRENE SULFONATE 15 G/60 ML LIQUID UDC PO ONE (11:00)
[2017-11-01 12:16] LABS: IRON, SERUM 82 ug/dL (50-175)
[2017-11-01] MEDS ORDERED: HYDROMORPHONE 1 MG/1 ML DISP.SYRIN IV PRN (13:45)
[2017-11-01] MEDS: diphenhydrAMINE 50 MG/1 ML VIAL IV PRN ×2 (14:57→18:27)
[2017-11-01] MEDS: WARFARIN SODIUM 7.5 MG TABLET PO SCH (17:10)
[2017-11-01] MEDS: HYDROMORPHONE 2 MG/1 ML DISP.SYRIN IV PRN (20:07)
[2017-11-01 20:19] VITALS: BP 112/64
[2017-11-02] MEDS: HYDROMORPHONE 2 MG/1 ML DISP.SYRIN IV PRN ×7 (00:17→23:08)
[2017-11-02] MEDS: diphenhydrAMINE 50 MG/1 ML VIAL IV PRN ×6 (00:22→23:07)
[2017-11-02 07:09] VITALS: BP 129/80
[2017-11-02] MEDS: IV 1/2NS 1000 ML 1,000 ML IV PRN ×2 (09:11→21:17)
[2017-11-02] MEDS: FOLIC ACID 1 MG TABLET PO SCH (10:33)
[2017-11-02] MEDS: METOPROLOL TARTRATE 50 MG TABLET PO SCH ×2 (10:33→21:17)
[2017-11-02] MEDS: HYDROXYUREA 500 MG CAPSULE PO SCH (10:35)
[2017-11-02] MEDS: HYDROCODONE/APAP 5-325MG TABLET PO PRN ×2 (11:30→19:00)
[2017-11-02 12:21] LABS: BASOPHILS # (AUTO) 0.1 K/uL (0.0-8.0); BASOPHILS % (AUTO) 1.5 % (0.0-2.0); EOSINOPHILS # (AUTO) 0.8 K/uL (0.0-0.7); EOSINOPHILS % (AUTO) 8.9 % (0.0-7.0); HEMATOCRIT 23.4 % (31.2-41.9); HEMOGLOBIN 8.1 g/dL (10.9-14.3); LYMPHOCYTES # (AUTO) 4.4 K/uL (20.0-40.0); LYMPHOCYTES % (AUTO) 50.4 % (20.5-51.5); MEAN CORPUSCULAR HEMOGLOBIN 30.4 uug (24.7-32.8); MEAN CORPUSCULAR HGB CONC 35 g/dL (32.3-35.6); MONOCYTES # (AUTO) 1.1 K/uL (2.0-10.0); MONOCYTES % (AUTO) 12.6 % (0.0-11.0); NEUTROPHILS # (AUTO) 2.3 K/uL (1.8-8.9); NEUTROPHILS % (AUTO) 26.6 % (38.5-71.5); PLATELET COUNT (AUTO) 113 K/uL (179-408); RED BLOOD CELL COUNT(AUTO) 2.66 MIL/uL (3.63-4.92); WHITE BLOOD COUNT (AUTO) 8.7 K/uL (3.8-11.8)
[2017-11-02 12:22] LABS: CREATININE 1.1 mg/dL (0.6-1.3); POTASSIUM 4.2 mmol/L (3.5-5.1)
[2017-11-02 12:52] LABS: BAND % (MANUAL) 3 % (0-10); EOSINOPHILS % (MANUAL) 12 % (0-8); LYMPHOCYTES % (MANUAL) 41 % (20-40); MONOCYTES % (MANUAL) 11 % (2-10); NEUTROPHILS % (MANUAL) 33 % (42-75)
[2017-11-02 15:06] VITALS: BP 117/75
[2017-11-02] MEDS: WARFARIN SODIUM 7.5 MG TABLET PO SCH (17:29)
[2017-11-02] MEDS ORDERED: ACET325T53 PO (19:27)
[2017-11-02] MEDS ORDERED: METO25TA6 PO (19:27)
[2017-11-02] MEDS ORDERED: HYDR500C PO (19:27)
[2017-11-02] MEDS ORDERED: HYDR2DIS IV (19:27)
[2017-11-02] MEDS ORDERED: MAGN400O6 PO (19:27)
[2017-11-02] MEDS ORDERED: DOCU-141 PO (19:27)
[2017-11-02] MEDS ORDERED: DIPH50VI5 IV (19:27)
[2017-11-02] MEDS ORDERED: ASPI-618 PO (19:29)
[2017-11-02] MEDS ORDERED: WARF7.5T23 PO (19:43)
[2017-11-02 20:00] VITALS: BP 115/74
[2017-11-02 20:50] VITALS: BP 115/74
[2017-11-03] MEDS: diphenhydrAMINE 50 MG/1 ML VIAL IV PRN ×6 (03:01→23:03)
[2017-11-03] MEDS: HYDROMORPHONE 2 MG/1 ML DISP.SYRIN IV PRN ×6 (03:02→23:03)
[2017-11-03 04:57] VITALS: BP 133/78
[2017-11-03 05:17] VITALS: BP 133/78
[2017-11-03] MEDS: IV 1/2NS 1000 ML 1,000 ML IV PRN ×2 (06:59→21:34)
[2017-11-03 08:00] VITALS: BP 129/84
[2017-11-03 08:08] LABS: BASOPHILS # (AUTO) 0.3 K/uL (0.0-8.0); BASOPHILS % (AUTO) 2.8 % (0.0-2.0); EOSINOPHILS # (AUTO) 1.4 K/uL (0.0-0.7); EOSINOPHILS % (AUTO) 14.5 % (0.0-7.0); HEMATOCRIT 24.4 % (31.2-41.9); HEMOGLOBIN 8.3 g/dL (10.9-14.3); LYMPHOCYTES # (AUTO) 3.3 K/uL (20.0-40.0); LYMPHOCYTES % (AUTO) 35.3 % (20.5-51.5); MEAN CORPUSCULAR HEMOGLOBIN 29.8 uug (24.7-32.8); MEAN CORPUSCULAR HGB CONC 34 g/dL (32.3-35.6); MONOCYTES # (AUTO) 1.8 K/uL (2.0-10.0); MONOCYTES % (AUTO) 19.2 % (0.0-11.0); NEUTROPHILS # (AUTO) 2.7 K/uL (1.8-8.9); NEUTROPHILS % (AUTO) 28.2 % (38.5-71.5); PLATELET COUNT (AUTO) 125 K/uL (179-408); RED BLOOD CELL COUNT(AUTO) 2.77 MIL/uL (3.63-4.92); WHITE BLOOD COUNT (AUTO) 9.4 K/uL (3.8-11.8)
[2017-11-03 08:19] LABS: BILIRUBIN,TOTAL 1.5 mg/dL (0.2-1.0); CREATININE 0.9 mg/dL (0.6-1.3); MAGNESIUM 1.6 mg/dL (1.8-2.4); PHOSPHOROUS 3.5 mg/dL (2.5-4.9); POTASSIUM 4.4 mmol/L (3.5-5.1)
[2017-11-03 08:22] LABS: THYROID STIMULATING HORMONE 2.746 mIU/mL (0.358-3.740)
[2017-11-03] MEDS: FOLIC ACID 1 MG TABLET PO SCH (08:35)
[2017-11-03] MEDS: HYDROXYUREA 500 MG CAPSULE PO SCH (08:37)
[2017-11-03] MEDS: METOPROLOL TARTRATE 50 MG TABLET PO SCH ×2 (08:39→21:33)
[2017-11-03] MEDS ORDERED: MAGNESIUM OXIDE 400 MG TABLET PO ONE (09:30)
[2017-11-03 09:53] LABS: EOSINOPHILS % (MANUAL) 15 % (0-8); LYMPHOCYTES % (MANUAL) 35 % (20-40); MONOCYTES % (MANUAL) 20 % (2-10); NEUTROPHILS % (MANUAL) 30 % (42-75)
[2017-11-03 15:45] VITALS: BP 121/63
[2017-11-03] MEDS: WARFARIN SODIUM 7.5 MG TABLET PO SCH (17:00)
[2017-11-03 20:01] VITALS: BP 142/73
[2017-11-04 00:09] VITALS: BP 125/75
[2017-11-04] MEDS: HYDROMORPHONE 2 MG/1 ML DISP.SYRIN IV PRN ×4 (03:03→15:13)
[2017-11-04] MEDS: diphenhydrAMINE 50 MG/1 ML VIAL IV PRN ×4 (03:03→15:12)
[2017-11-04 03:45] VITALS: BP 130/74
[2017-11-04 06:30] VITALS: BP 127/77
[2017-11-04] MEDS: IV 1/2NS 1000 ML 1,000 ML IV PRN (06:34)
[2017-11-04 08:00] VITALS: BP 142/76
[2017-11-04] MEDS: FOLIC ACID 1 MG TABLET PO SCH (08:43)
[2017-11-04] MEDS: METOPROLOL TARTRATE 50 MG TABLET PO SCH (08:44)
[2017-11-04] MEDS: HYDROXYUREA 500 MG CAPSULE PO SCH (08:46)
[2017-11-04] MEDS ORDERED: FUROSEMIDE 20 MG/2 ML VIAL IV ONE (11:15)
[2017-11-04 15:24] VITALS: BP 124/74
== END 2017-11-04 16:27 | disposition home or self-care (01) | DRG 811 ==
LOC: ER 22:02 → MED 10-30 00:09 → MEDSURG1 10-30 21:56
PROVIDERS: ADMIT Internal Medicine; ATTEND Internal Medicine
DX: D57.00 Hb-SS disease with crisis, unspecified (principal); N17.0 Acute kidney failure with tubular necrosis; I50.33 Acute on chronic diastolic (congestive) heart failure; E44.0 Moderate protein-calorie malnutrition; D69.6 Thrombocytopenia, unspecified; E83.42 Hypomagnesemia; E83.39 Other disorders of phosphorus metabolism; E87.5 Hyperkalemia; I13.0 Hypertensive heart and chronic kidney disease with heart failure and stage 1 through stage 4 chronic kidney disease, or unspecified chronic kidney disease; R74.0 Nonspecific elevation of levels of transaminase and lactic acid dehydrogenase [LDH]; N18.9 Chronic kidney disease, unspecified; Z79.01 Long term (current) use of anticoagulants; Z86.711 Personal history of pulmonary embolism; Z86.718 Personal history of other venous thrombosis and embolism; I25.2 Old myocardial infarction; D64.9 Anemia, unspecified; Z68.28 Body mass index [BMI] 28.0-28.9, adult
CPT/HCPCS: 36415; 70030-TC; 83550; 83690; 83735; 83970; 84100; 84155; 84156; 84165; 84300; 84443; 84703; 85025; 85610; 85730; 86803; 93005; A4663; J1170; J1200; J1940; J2405; J3490; J7030; J7060; Q0162; Q0163

== ENCOUNTER 2017-12-30 15:54 | Emergency (ER) | payer MEDICARE, OTHER ==
[~2017-12-30] VITALS: Ht 162.6 cm; Wt 72.6 kg
[~2017-12-30 15:54] MED LIST changes: +ACET325T53 PO; +ASPI-618 PO; -DIPH25CA83 PO; +DOCU-141 PO; -HYDR4TAB4 PO; +HYDR500C PO; +MAGN400O6 PO; -METO50TA16 PO; -OXYC80TA40 PO
[2017-12-30] MEDS ORDERED: diphenhydrAMINE 50 MG/1 ML VIAL IV ONE (16:30)
[2017-12-30] MEDS ORDERED: FENTANYL CITRATE 100 MCG/2 ML AMPUL IV ONE (16:30)
[2017-12-30] MEDS ORDERED: diphenhydrAMINE 50 MG/1 ML VIAL ONE (16:33)
[2017-12-30] MEDS ORDERED: FENTANYL CITRATE 100 MCG/2 ML AMPUL ONE (16:34)
--- NOTE | 2017-12-30 17:07 | NUR ---
MSE COMPLETED, PT D/C'D HOME, ACI/ERX X1 GIVEN. PT AMBULATED W/O DIFF/TOOK ALL N]BELONGINGS.
[2017-12-30 17:13] VITALS: BP 122/74
== END 2017-12-30 17:00 | disposition home or self-care (01) ==
LOC: ER 15:56
DX: D57.00 Hb-SS disease with crisis, unspecified (principal); Z88.5 Allergy status to narcotic agent; Z79.82 Long term (current) use of aspirin; Z79.899 Other long term (current) drug therapy
CPT/HCPCS: 96374; 96375; 99284; A4663; J1200; J3010

== ENCOUNTER 2018-02-16 16:30 | Emergency (ER) | payer MEDICARE, OTHER ==
[~2018-02-16] VITALS: Ht 162.6 cm; Wt 75.7 kg
[2018-02-16] MEDS ORDERED: HYDROMORPHONE 1 MG/1 ML DISP.SYRIN IV ONE (16:45)
[2018-02-16] MEDS ORDERED: diphenhydrAMINE 50 MG/1 ML VIAL IV ONE (16:45)
[2018-02-16] MEDS ORDERED: diphenhydrAMINE 50 MG/1 ML VIAL ONE (16:55)
[2018-02-16] MEDS ORDERED: HYDROMORPHONE 2 MG/1 ML DISP.SYRIN ONE (16:56)
--- NOTE | 2018-02-16 17:02 | NUR ---
Patient discharged to home in stable conditon. Written and verbal after care instructions given. Patient verbalizes understanding of instructions.pt walks in steady gait. pt not driving
== END 2018-02-16 17:09 | disposition home or self-care (01) ==
LOC: ER 16:32
DX: D57.00 Hb-SS disease with crisis, unspecified (principal); Z88.5 Allergy status to narcotic agent
CPT/HCPCS: A4663; J1170; J1200

== ENCOUNTER 2018-02-26 16:01 | Emergency (ER) | payer MEDICARE, OTHER ==
[~2018-02-26] VITALS: Ht 162.6 cm; Wt 75.7 kg
[2018-02-26] MEDS ORDERED: HYDROMORPHONE 1 MG/1 ML DISP.SYRIN IV ONE ×2 (16:15→17:45)
[2018-02-26] MEDS ORDERED: diphenhydrAMINE 50 MG/1 ML VIAL IV ONE (16:15)
[2018-02-26] MEDS ORDERED: HYDROMORPHONE 2 MG/1 ML DISP.SYRIN ONE ×2 (16:22→17:44)
[2018-02-26] MEDS ORDERED: diphenhydrAMINE 50 MG/1 ML VIAL ONE (16:22)
[2018-02-26 16:47] LABS: MEAN CORPUSCULAR HEMOGLOBIN 30.9 uug (24.7-32.8)
[2018-02-26 16:56] LABS: BASOPHILS # (AUTO) 0.2 K/uL (0.0-8.0); BASOPHILS % (AUTO) 2.2 % (0.0-2.0); EOSINOPHILS # (AUTO) 0.3 K/uL (0.0-0.7); EOSINOPHILS % (AUTO) 2.3 % (0.0-7.0); HEMATOCRIT 25.3 % (31.2-41.9); HEMOGLOBIN 8.7 g/dL (10.9-14.3); LYMPHOCYTES # (AUTO) 6.3 K/uL (20.0-40.0); LYMPHOCYTES % (AUTO) 57.2 % (20.5-51.5); MEAN CORPUSCULAR HGB CONC 34 g/dL (32.3-35.6); MEAN CORPUSCULAR VOLUME 89.9 fL (75.5-95.3); MONOCYTES # (AUTO) 0.6 K/uL (2.0-10.0); MONOCYTES % (AUTO) 5.3 % (0.0-11.0); NEUTROPHILS # (AUTO) 3.6 K/uL (1.8-8.9); PLATELET COUNT (AUTO) 84 K/uL (179-408); RED BLOOD CELL COUNT(AUTO) 2.82 MIL/uL (3.63-4.92)
--- NOTE | 2018-02-26 17:15 | NUR ---
Patient is resting comfortably in bed with eyes closed, NAD noted.
[2018-02-26 17:32] LABS: BAND % (MANUAL) 2 % (0-10); EOSINOPHILS % (MANUAL) 2 % (0-8); LYMPHOCYTES % (MANUAL) 46 % (20-40); MONOCYTES % (MANUAL) 6 % (2-10); NEUTROPHILS % (MANUAL) 44 % (42-75)
--- NOTE | 2018-02-26 18:23 | NUR ---
Patient discharged to home in stable conditon. Written and verbal after care instructions given. Patient verbalizes understanding of instructions. Pt left ER w/ steady gait.
[2018-02-26 18:24] VITALS: BP 110/63
== END 2018-02-26 18:26 | disposition home or self-care (01) ==
LOC: ER 16:03
DX: D57.00 Hb-SS disease with crisis, unspecified (principal); Z88.5 Allergy status to narcotic agent; Z79.82 Long term (current) use of aspirin
CPT/HCPCS: 36415; 85025; A4663; J1170; J1200

== ENCOUNTER 2018-02-26 19:04 | Emergency (ER) | payer MEDICARE, OTHER ==
[~2018-02-26] VITALS: Ht 162.6 cm; Wt 75.7 kg
--- NOTE | 2018-02-26 20:14 | NUR ---
Patient discharged to home in stable conditon. Written and verbal after care instructions given. Patient verbalizes understanding of instructions. Pt ambulated out of ER with steady gait, no acute signs of distress, VSS, all belongings taken.
[2018-02-26 20:18] VITALS: BP 114/73
== END 2018-02-26 20:18 | disposition home or self-care (01) ==
LOC: ER 19:06
DX: G89.29 Other chronic pain (principal); M79.1 Myalgia; Z88.5 Allergy status to narcotic agent; Z79.82 Long term (current) use of aspirin
CPT/HCPCS: A4663

== ENCOUNTER 2018-03-16 11:18 | Emergency (ER) | payer MEDICARE, OTHER ==
[~2018-03-16] VITALS: Ht 162.6 cm; Wt 64.9 kg
[2018-03-16] MEDS ORDERED: IV NORMAL SALINE 1000 ML BAG IV ONE (11:45)
[2018-03-16] MEDS ORDERED: diphenhydrAMINE 50 MG/1 ML VIAL IV ONE (11:45)
[2018-03-16] MEDS ORDERED: HYDROMORPHONE 1 MG/1 ML DISP.SYRIN IV ONE (11:45)
[2018-03-16] MEDS ORDERED: diphenhydrAMINE 50 MG/1 ML VIAL ONE (11:49)
[2018-03-16] MEDS ORDERED: HYDROMORPHONE 2 MG/1 ML DISP.SYRIN ONE (11:49)
--- NOTE | 2018-03-16 12:51 | NUR ---
Patient discharged to home in stable conditon. Written and verbal after care instructions given. Patient verbalizes understanding of instructions. Stressed follow up with pmd. Pt was instructed not to drive due to Dilaudid and Benadryl adm, pt walked out of ER with steady gait.
[2018-03-16 12:52] VITALS: BP 157/94
== END 2018-03-16 12:53 | disposition home or self-care (01) ==
LOC: ER 11:21
DX: D57.00 Hb-SS disease with crisis, unspecified (principal); Z88.5 Allergy status to narcotic agent
CPT/HCPCS: 96374; 96375; 99284; A4663; J1170; J1200; J7030

== ENCOUNTER 2018-05-06 05:01 | Emergency (ER) | payer MEDICARE, OTHER ==
[~2018-05-06] VITALS: Ht 162.6 cm; Wt 78.9 kg
--- NOTE | 2018-05-06 05:30 | NUR ---
Pt. ambulated into ED, A/Ox2, c/o chest pain - Dr. Fowler notified,
[2018-05-06] MEDS ORDERED: HYDROMORPHONE 1 MG/1 ML DISP.SYRIN IV ONE (05:45)
[2018-05-06] MEDS ORDERED: ONDANSETRON 4 MG/2 ML VIAL IV ONE (05:45)
--- NOTE | 2018-05-06 06:24 | NUR ---
Phlebotomy in w/ pt., unable to draw labs
--- NOTE | 2018-05-06 07:30 | NUR ---
pharmacy note; pt refused saline lock, pt refused diluadid and zofran iv meds
--- NOTE | 2018-05-06 07:49 | NUR ---
called and spoke to [employer] supervisor jayant from [facility], I faxed pt consent to
[2018-05-06] MEDS ORDERED: OXYCODONE HCL 5 MG TABLET ONE (08:12)
[2018-05-06] MEDS ORDERED: OXYCODONE HCL 5 MG TABLET PO ONE (08:15)
--- NOTE | 2018-05-06 08:20 | NUR ---
p[t rec'd oxycodone 15mg po, pt also given aci/rx x1. pt refused to sign. pt ambul;ated w/o diff/took all belongings
[2018-05-06 08:33] VITALS: BP 170/99
== END 2018-05-06 08:25 | disposition home or self-care (01) ==
LOC: ER 05:05
DX: G89.29 Other chronic pain (principal); R07.89 Other chest pain; Z88.5 Allergy status to narcotic agent; Z79.82 Long term (current) use of aspirin
CPT/HCPCS: 71045; 93005; A4663

== ENCOUNTER 2018-06-16 17:13 | Emergency (ER) | payer MEDICARE, OTHER ==
[~2018-06-16] VITALS: Ht 165.1 cm; Wt 72.6 kg
[~2018-06-16 17:13] MED LIST changes: -ASPI-618 PO; -DOCU-141 PO; -FOLI1TAB16 PO; -HYDR500C PO; -MAGN400O6 PO
[2018-06-16] MEDS ORDERED: HYDROMORPHONE 2 MG/1 ML DISP.SYRIN ONE (17:30)
[2018-06-16] MEDS ORDERED: HYDROMORPHONE 1 MG/1 ML DISP.SYRIN IM ONE (17:30)
[2018-06-16 17:44] LABS: HEMATOCRIT 31.3 % (31.2-41.9); HEMOGLOBIN 10.6 g/dL (10.9-14.3); MEAN CORPUSCULAR HEMOGLOBIN 30.2 uug (24.7-32.8); MEAN CORPUSCULAR HGB CONC 34 g/dL (32.3-35.6); MEAN CORPUSCULAR VOLUME 89.5 fL (75.5-95.3); PLATELET COUNT (AUTO) 214 K/uL (179-408); RED BLOOD CELL COUNT(AUTO) 3.49 MIL/uL (3.63-4.92); WHITE BLOOD COUNT (AUTO) 5.5 K/uL (3.8-11.8)
[2018-06-16 17:45] LABS: POTASSIUM 3.5 mmol/L (3.5-5.1)
[2018-06-16 17:51] LABS: BILIRUBIN,DIRECT 1.2 mg/dL (0.0-0.2); BILIRUBIN,TOTAL 2.7 mg/dL (0.2-1.0)
[2018-06-16 18:03] LABS: BAND % (MANUAL) 7 % (0-10); EOSINOPHILS % (MANUAL) 6 % (0-8); LYMPHOCYTES % (MANUAL) 53 % (20-40); MONOCYTES % (MANUAL) 8 % (2-10); NEUTROPHILS % (MANUAL) 26 % (42-75)
--- NOTE | 2018-06-16 18:14 | NUR ---
shiv completed, meds admin. pt refused aci and rx. pt ambulated w/o diff/took all belongings.
[2018-06-16 18:17] VITALS: BP 128/72
== END 2018-06-16 18:17 | disposition home or self-care (01) ==
LOC: ER 17:14
DX: D57.00 Hb-SS disease with crisis, unspecified (principal); D64.9 Anemia, unspecified; G89.29 Other chronic pain; E80.7 Disorder of bilirubin metabolism, unspecified; Z79.899 Other long term (current) drug therapy
CPT/HCPCS: 36415; 80048; 80076; 83690; 85025; 96372; 99283; J1170; A4663

== ENCOUNTER 2018-08-04 16:35 | Emergency (ER) | payer MEDICARE, MEDICAID ==
[~2018-08-04] VITALS: Ht 160 cm; Wt 68.0 kg
[2018-08-04] MEDS: HYDROMORPHONE 1 MG/1 ML DISP.SYRIN IM ONE (17:00)
[2018-08-04] MEDS: diphenhydrAMINE 50 MG/1 ML VIAL IM ONE (17:00)
[2018-08-04] MEDS ORDERED: diphenhydrAMINE 50 MG/1 ML VIAL ONE (17:00)
[2018-08-04] MEDS ORDERED: HYDROMORPHONE 2 MG/1 ML DISP.SYRIN ONE (17:00)
--- NOTE | 2018-08-04 17:00 | NUR ---
Patient discharged to home in stable conditon. Written and verbal after care instructions given. Patient verbalizes understanding of instructions.
== END 2018-08-04 17:01 | disposition home or self-care (01) ==
LOC: ER 16:35
DX: D57.00 Hb-SS disease with crisis, unspecified (principal); Z88.5 Allergy status to narcotic agent; Z79.899 Other long term (current) drug therapy
CPT/HCPCS: 96372 ×2; 99283; J1170; J1200; A4663

== ENCOUNTER 2018-10-09 15:29 | Emergency (ER) | payer MEDICARE, MEDICAID ==
[~2018-10-09] VITALS: Ht 162.6 cm; Wt 69.9 kg
[2018-10-09] MEDS ORDERED: diphenhydrAMINE 50 MG/1 ML VIAL ONE ×2 (16:43→18:09)
[2018-10-09] MEDS ORDERED: HYDROMORPHONE 2 MG/1 ML DISP.SYRIN ONE ×2 (16:45→18:10)
[2018-10-09] MEDS: diphenhydrAMINE 50 MG/1 ML VIAL IM ONE ×2 (17:11→18:33)
[2018-10-09] MEDS: HYDROMORPHONE 1 MG/1 ML DISP.SYRIN IM ONE ×2 (17:11→18:10)
--- NOTE | 2018-10-09 19:42 | NUR ---
Note anson in EDM - 10/09/18 at 1944 by NICK Patient given written and verbal discharge instructions. Patient verbalizes understanding of instructions. Patient is ambulatory with stable gait. Refuses offer of snf placement. Patient given list of available shelters in surrounding area.
[2018-10-09 19:44] VITALS: BP 139/82
--- NOTE | 2018-10-09 19:44 | NUR ---
Patient discharged to home in stable conditon. Written and verbal after care instructions given. Patient verbalizes understanding of instructions. Patient ambulated with stable gait.
--- NOTE | 2018-10-09 19:45 | NUR ---
Instructed patient to not drive d/t the drugs administered today, patient verbalizes understanding.
== END 2018-10-09 19:45 | disposition home or self-care (01) ==
LOC: ER 15:29
DX: G89.29 Other chronic pain (principal); R07.9 Chest pain, unspecified; M54.5 Low back pain; Z88.5 Allergy status to narcotic agent; Z79.899 Other long term (current) drug therapy
CPT/HCPCS: 71045; 93005; 96372 ×4; 99283; J1170 ×2; J1200 ×2; A4663

== ENCOUNTER 2018-10-10 18:36 | Emergency (ER) | payer MEDICARE, MEDICAID ==
[~2018-10-10] VITALS: Ht 162.6 cm; Wt 68.0 kg
[2018-10-10] MEDS ORDERED: diphenhydrAMINE 50 MG/1 ML VIAL ONE ×2 (19:29→20:27)
[2018-10-10] MEDS ORDERED: HYDROMORPHONE 2 MG/1 ML DISP.SYRIN ONE ×2 (19:29→20:27)
[2018-10-10] MEDS: diphenhydrAMINE 50 MG/1 ML VIAL IM ONE ×2 (19:36→20:30)
[2018-10-10] MEDS: HYDROMORPHONE 1 MG/1 ML DISP.SYRIN IM ONE ×2 (19:37→20:30)
--- NOTE | 2018-10-10 21:31 | NUR ---
Patient discharged to home in stable conditon. Written and verbal after care instructions given. Patient verbalizes understanding of instructions. Denies any homelessness. Ambulated with stable gait.
[2018-10-10 21:33] VITALS: BP 140/89
== END 2018-10-10 21:33 | disposition home or self-care (01) ==
LOC: ER 18:36
DX: F11.23 Opioid dependence with withdrawal (principal); I50.9 Heart failure, unspecified; Z88.5 Allergy status to narcotic agent; Z79.899 Other long term (current) drug therapy
CPT/HCPCS: 96372 ×4; 99283; J1170 ×2; J1200 ×2; A4663

== ENCOUNTER 2018-10-20 16:35 | Emergency (ER) | payer MEDICARE, MEDICAID ==
[~2018-10-20] VITALS: Ht 162.6 cm; Wt 68.0 kg
--- NOTE | 2018-10-20 16:45 | NUR ---
Patient was seen sitting comfortably & quietly in the ER waiting room. As soon as this patient was called for triage and entered the main ER department, this patient started crying loudly, restless, and agitated, c/o "sickle cell pains" all over. pending MD evaluation.
[2018-10-20] MEDS ORDERED: HYDROMORPHONE 2 MG/1 ML DISP.SYRIN ONE (16:49)
[2018-10-20] MEDS ORDERED: diphenhydrAMINE 50 MG/1 ML VIAL ONE (16:49)
--- NOTE | 2018-10-20 16:53 | NUR ---
Patient discharged to home in stable conditon & brisk steady gait. Written and verbal after care instructions given to patient. Patient verbalizes understanding of instructions.
[2018-10-20] MEDS ORDERED: diphenhydrAMINE 50 MG/1 ML VIAL IM ONE (17:00)
[2018-10-20] MEDS ORDERED: HYDROMORPHONE 1 MG/1 ML DISP.SYRIN IM ONE (17:00)
== END 2018-10-20 17:00 | disposition home or self-care (01) ==
LOC: ER 16:39
DX: D57.00 Hb-SS disease with crisis, unspecified (principal); Z88.5 Allergy status to narcotic agent; Z79.899 Other long term (current) drug therapy
CPT/HCPCS: 96372 ×2; 99283; J1170; J1200; A4663

== ENCOUNTER 2018-10-21 11:07 | Emergency (ER) | payer MEDICARE, MEDICAID ==
[~2018-10-21] VITALS: Ht 162.6 cm; Wt 70.3 kg
--- NOTE | 2018-10-21 11:24 | NUR ---
Dr. Fowler at the bedside for MSE.
[2018-10-21 11:53] LABS: *AMPHETAMINE, URINE NEGATIVE (NEGATIVE); *BARBITURATE, URINE NEGATIVE (NEGATIVE); *CANNABINOID, URINE NEGATIVE (NEGATIVE); *COCCAINE, URINE NEGATIVE (NEGATIVE); *OPIATE, URINE POSITIVE (NEGATIVE); *PHENCYCLIDINE SCREEN,URINE NEGATIVE (NEGATIVE)
[2018-10-21 11:57] LABS: HEMATOCRIT 24.7 % (31.2-41.9); HEMOGLOBIN 8.4 g/dL (10.9-14.3); MEAN CORPUSCULAR HEMOGLOBIN 30.8 uug (24.7-32.8); MEAN CORPUSCULAR HGB CONC 34 g/dL (32.3-35.6); MEAN CORPUSCULAR VOLUME 90.8 fL (75.5-95.3); PLATELET COUNT (AUTO) 121 K/uL (179-408); RED BLOOD CELL COUNT(AUTO) 2.72 MIL/uL (3.63-4.92); WHITE BLOOD COUNT (AUTO) 8.7 K/uL (3.8-11.8)
[2018-10-21 11:59] LABS: POTASSIUM 5.5 mmol/L (3.5-5.1)
[2018-10-21 12:20] LABS: NEUTROPHILS % (MANUAL) 43 % (42-75)
[2018-10-21 12:21] LABS: EOSINOPHILS % (MANUAL) 4 % (0-8); LYMPHOCYTES % (MANUAL) 44 % (20-40); MONOCYTES % (MANUAL) 9 % (2-10)
[2018-10-21] MEDS ORDERED: HYDROMORPHONE 2 MG/1 ML DISP.SYRIN ONE (12:21)
[2018-10-21] MEDS ORDERED: ONDANSETRON 4 MG/2 ML VIAL ONE (12:26)
[2018-10-21] MEDS ORDERED: HYDROMORPHONE 1 MG/1 ML DISP.SYRIN IM ONE (12:30)
[2018-10-21] MEDS ORDERED: ONDANSETRON 4 MG/2 ML VIAL IM ONE (12:30)
[2018-10-21] MEDS ORDERED: diphenhydrAMINE 25 MG CAP PO ONE ×2 (12:35→12:45)
--- NOTE | 2018-10-21 12:39 | NUR ---
Patient discharged to home in stable conditon. Written and verbal after care instructions given. Patient verbalizes understanding of instructions.
== END 2018-10-21 12:40 | disposition home or self-care (01) ==
LOC: ER 11:07
DX: D57.1 Sickle-cell disease without crisis (principal); D69.6 Thrombocytopenia, unspecified; Z88.5 Allergy status to narcotic agent; Z79.899 Other long term (current) drug therapy
CPT/HCPCS: 36415; 80048; 80307; 85025; 96372; 99283; J1170; J2405; Q0163; A4663

== ENCOUNTER 2018-11-04 17:52 | Emergency (ER) | payer MEDICARE, MEDICAID ==
[~2018-11-04] VITALS: Ht 154.9 cm; Wt 70.3 kg
[2018-11-04 18:52] LABS: MEAN CORPUSCULAR HEMOGLOBIN 31.3 uug (24.7-32.8); MEAN CORPUSCULAR HGB CONC 33 g/dL (32.3-35.6); MEAN CORPUSCULAR VOLUME 93.7 fL (75.5-95.3); PLATELET COUNT (AUTO) 111 K/uL (179-408); RED BLOOD CELL COUNT(AUTO) 2.88 MIL/uL (3.63-4.92)
[2018-11-04 18:54] LABS: *BILIRUBIN,URIN NEGATIVE (NEGATIVE); *BLOOD, URINE NEGATIVE (NEGATIVE); *COLOR,URINE DARK YELLOW (YELLOW); *KETONES,URINE NEGATIVE (NEGATIVE); *UROBILINOGEN,URINE >=8.0 E.U./dl (NORMAL); LEUKOCYTE ESTERASE ,URINE NEGATIVE (NEGATIVE); NITRITE, URINE NEGATIVE (NEGATIVE); UGLUCOSE NEGATIVE (NEGATIVE)
[2018-11-04 18:55] LABS: *URINE HCG, QUAL NEGATIVE (NEGATIVE)
[2018-11-04] MEDS ORDERED: HYDROMORPHONE 1 MG/1 ML DISP.SYRIN IM ONE (19:00)
[2018-11-04 19:05] LABS: *CLARITY,URINE HAZY (CLEAR)
[2018-11-04 19:07] LABS: BACTERIA,URINE MODERATE /HPF (NONE SEEN); SQUAMOUS EPITHELIAL CELL,UR MODERATE /HPF (NONE SEEN); WBC,URINE 0-3 /HPF (0-3)
[2018-11-04] MEDS ORDERED: HYDROMORPHONE 2 MG/1 ML DISP.SYRIN ONE (19:07)
[2018-11-04 19:25] LABS: BAND % (MANUAL) 2 % (0-10); EOSINOPHILS % (MANUAL) 6 % (0-8); LYMPHOCYTES % (MANUAL) 30 % (20-40); MONOCYTES % (MANUAL) 14 % (2-10); NEUTROPHILS % (MANUAL) 48 % (42-75)
--- NOTE | 2018-11-04 19:37 | NUR ---
Patient discharged to home in stable conditon. Written and verbal after care instructions given. Patient verbalizes understanding of instructions. Pt left ER in stable gait. No acute distress noted. Pt states will not drive. All belongings w pt.
[2018-11-04 19:39] VITALS: BP 121/64
== END 2018-11-04 19:40 | disposition home or self-care (01) ==
LOC: ER 17:52
DX: D57.00 Hb-SS disease with crisis, unspecified (principal); B00.1 Herpesviral vesicular dermatitis; M54.5 Low back pain; R30.0 Dysuria; I50.9 Heart failure, unspecified; Z88.5 Allergy status to narcotic agent; Z79.899 Other long term (current) drug therapy
CPT/HCPCS: 36415; 81001; 84703; 85025; 85610; 87086; 96372; 99283; J1170; A4663

== ENCOUNTER 2018-12-22 17:20 | Emergency (ER) | payer MEDICARE, MEDICAID ==
[~2018-12-22] VITALS: Ht 162.6 cm; Wt 68.0 kg
--- NOTE | 2018-12-22 17:38 | NUR ---
PT IS IN ROOM #1A. DR ROMO EVALUATED THE PT.
[2018-12-22] MEDS ORDERED: METO50TA16 PO (17:49)
[2018-12-22] MEDS ORDERED: HYDR8TAB2 PO (17:49)
[2018-12-22] MEDS ORDERED: HYDR-4354 PO (17:49)
[2018-12-22] MEDS ORDERED: ZOLP10TA2 PO (17:49)
[2018-12-22] MEDS ORDERED: FOLI1TAB16 PO (17:50)
--- NOTE | 2018-12-22 18:55 | NUR ---
PT REGUESTED FOOD AND WATER. PT ATE SANDVICH WITH APPLE JUCE.
--- NOTE | 2018-12-22 18:56 | NUR ---
REPORT GIVEN TO LOZENGE MAKER RN.
--- NOTE | 2018-12-22 19:40 | NUR ---
Pt provided a tuna sandwich and juice per request. Pt now alert, oriented x 3.
--- NOTE | 2018-12-22 19:45 | NUR ---
Pt ambulated with steady gait to bathroom.
--- NOTE | 2018-12-22 20:08 | NUR ---
Patient discharged to home in stable conditon. Written and verbal after care instructions given. Patient verbalizes understanding of instructions. Pt out of ER with steady gait, no acute signs of distress, all belongings taken, VSS.
[2018-12-22 20:10] VITALS: BP 120/64
== END 2018-12-22 20:11 | disposition home or self-care (01) ==
LOC: ER 17:21
DX: T40.2X1A Poisoning by other opioids, accidental (unintentional), initial encounter (principal); I50.9 Heart failure, unspecified; G89.29 Other chronic pain; Z88.5 Allergy status to narcotic agent; Z79.899 Other long term (current) drug therapy; Y92.89 Other specified places as the place of occurrence of the external cause
CPT/HCPCS: A4663

== ENCOUNTER 2019-01-15 17:58 | Emergency (ER) | payer MEDICARE, MEDICAID ==
[~2019-01-15] VITALS: Ht 162.6 cm; Wt 74.8 kg
[~2019-01-15 17:58] MED LIST changes: +FOLI1TAB16 PO; +HYDR-4354 PO; +HYDR8TAB2 PO; +METO50TA16 PO; +ZOLP10TA2 PO
[2019-01-15] MEDS ORDERED: WARF7.5T23 PO (18:26)
[2019-01-15] MEDS ORDERED: HYDROMORPHONE HCL 2 MG TABLET PO ONE (19:30)
[2019-01-15] MEDS ORDERED: CEphaleXIN 500 MG CAPSULE PO ONE (19:30)
[2019-01-15] MEDS ORDERED: CEphaleXIN 500 MG CAPSULE ONE (19:31)
[2019-01-15] MEDS ORDERED: HYDROMORPHONE HCL 2 MG TABLET ONE (19:32)
--- NOTE | 2019-01-15 19:33 | NUR ---
Patient discharged to home in stable conditon. Written and verbal after care instructions given. Patient verbalizes understanding of instructions. Patient ambulated with stable gait.
[2019-01-15 19:34] VITALS: BP 112/92
== END 2019-01-15 19:35 | disposition home or self-care (01) ==
LOC: ER 17:58
DX: K02.9 Dental caries, unspecified (principal); I50.9 Heart failure, unspecified; G89.29 Other chronic pain; Z88.5 Allergy status to narcotic agent; Z79.01 Long term (current) use of anticoagulants; Z79.891 Long term (current) use of opiate analgesic; Z79.899 Other long term (current) drug therapy
CPT/HCPCS: A4663

== ENCOUNTER 2019-01-25 17:05 | Emergency (ER) | payer MEDICARE, MEDICAID ==
[~2019-01-25] VITALS: Ht 162.6 cm; Wt 73.5 kg
[~2019-01-25 17:05] MED LIST changes: -ACET325T53 PO; +WARF7.5T23 PO
--- NOTE | 2019-01-25 17:18 | NUR ---
Patient ambulated to the bathroom with steady gait after drinking 4 cups of filtered water. Patient does not want to stay in our ER department.
--- NOTE | 2019-01-25 17:28 | NUR ---
Patient only wants food (sandwich, fruits & juice). Ham sandwich, 2 cups of apple juice & one cup of sweetened pears given per patient's request. Patient does not wish to proceed with medical care recommended by Dr. Berrios. Patient given information related to possible complications, up to and including , which could occur as a result of leaving the hospital at this time. Patient verbalizes understanding of risks involved due to leaving against medical advice. Patient has signed AMA form.
== END 2019-01-25 17:30 | disposition left against medical advice (07) ==
LOC: ER 17:08
DX: T40.601A Poisoning by unspecified narcotics, accidental (unintentional), initial encounter (principal); G89.29 Other chronic pain; D57.1 Sickle-cell disease without crisis; I50.9 Heart failure, unspecified; F20.9 Schizophrenia, unspecified; Z88.5 Allergy status to narcotic agent; Z79.01 Long term (current) use of anticoagulants; Z79.899 Other long term (current) drug therapy; Y92.89 Other specified places as the place of occurrence of the external cause
CPT/HCPCS: A4663

== ENCOUNTER 2019-05-04 08:46 | Emergency (ER) | payer MEDICARE, MEDICAID ==
[~2019-05-04] VITALS: Ht 162.6 cm; Wt 72.6 kg
[2019-05-04] MEDS ORDERED: HYDROMORPHONE HCL 2 MG TABLET PO ONE (09:45)
[2019-05-04] MEDS ORDERED: IV NORMAL SALINE 1000 ML BAG IV ONE (09:45)
[2019-05-04] MEDS ORDERED: HYDROMORPHONE HCL 2 MG TABLET ONE (09:50)
[2019-05-04 10:46] LABS: HEMATOCRIT 25.9 % (31.2-41.9); HEMOGLOBIN 8.4 g/dL (10.9-14.3); MEAN CORPUSCULAR HEMOGLOBIN 31.6 uug (24.7-32.8); MEAN CORPUSCULAR HGB CONC 33 g/dL (32.3-35.6); PLATELET COUNT (AUTO) 89 K/uL (179-408); RED BLOOD CELL COUNT(AUTO) 2.67 MIL/uL (3.63-4.92); WHITE BLOOD COUNT (AUTO) 9.1 K/uL (3.8-11.8)
[2019-05-04 10:47] LABS: CREATININE 0.8 mg/dL (0.6-1.3); POTASSIUM 4.2 mmol/L (3.5-5.1)
--- NOTE | 2019-05-04 10:52 | NUR ---
Patient is resting comfortably on gurney with eyes closed, pending urine specimen & blood tests' results@this time.
[2019-05-04 10:53] LABS: BILIRUBIN,DIRECT 0.8 mg/dL (0.0-0.2); BILIRUBIN,TOTAL 1.8 mg/dL (0.2-1.0); TOTAL PROTEIN, SERUM 7.3 g/dL (6.4-8.2)
[2019-05-04] MEDS ORDERED: diphenhydrAMINE 50 MG/1 ML VIAL ONE (11:02)
[2019-05-04] MEDS ORDERED: diphenhydrAMINE 50 MG/1 ML VIAL IV ONE (11:15)
[2019-05-04 11:16] LABS: *BILIRUBIN,URIN NEGATIVE (NEGATIVE); *BLOOD, URINE NEGATIVE (NEGATIVE); *CLARITY,URINE CLEAR (CLEAR); *COLOR,URINE YELLOW (YELLOW); *KETONES,URINE NEGATIVE (NEGATIVE); *UROBILINOGEN,URINE 0.2 E.U./dl (NORMAL); LEUKOCYTE ESTERASE ,URINE NEGATIVE (NEGATIVE); NITRITE, URINE NEGATIVE (NEGATIVE); PH,URINE 7.5 (5.0-8.0); UGLUCOSE NEGATIVE (NEGATIVE)
[2019-05-04 11:20] LABS: *URINE HCG, QUAL NEGATIVE (NEGATIVE)
[2019-05-04 11:47] LABS: EOSINOPHILS % (MANUAL) 17 % (0-8); LYMPHOCYTES % (MANUAL) 17 % (20-40); MONOCYTES % (MANUAL) 12 % (2-10); NEUTROPHILS % (MANUAL) 54 % (42-75)
--- NOTE | 2019-05-04 12:07 | NUR ---
"Can I have Dilaudid by IV?" per patient's verbalization. MD notified.
--- NOTE | 2019-05-04 12:16 | NUR ---
IV removed@1214. Catheter intact and site benign. Pressure and 4x4 gauze applied to site. No bleeding noted. Patient discharged to home in stable conditon & steady gait. Written and verbal after care instructions given to patient. Patient verbalizes understanding & compliance of instructions. Follow up with her PAIN doctor was emphasized to patient.
== END 2019-05-04 12:19 | disposition home or self-care (01) ==
LOC: ER 08:46
DX: G89.29 Other chronic pain (principal); M79.10 Myalgia, unspecified site; D57.00 Hb-SS disease with crisis, unspecified; D69.6 Thrombocytopenia, unspecified; I50.9 Heart failure, unspecified; F20.9 Schizophrenia, unspecified; Z88.5 Allergy status to narcotic agent; Z79.899 Other long term (current) drug therapy; Z79.01 Long term (current) use of anticoagulants
CPT/HCPCS: 36415; 71045; 80048; 80076; 81001; 83690; 84484; 84703; 85007; 85025; 85730; 93005; 96374; 99284; J1200; 70030-TC; A4663; J7030

== ENCOUNTER 2019-07-13 16:00 | Emergency (ER) | payer MEDICARE, OTHER, MEDICAID ==
[~2019-07-13] VITALS: Ht 162.6 cm; Wt 70.3 kg
[2019-07-13] MEDS ORDERED: diphenhydrAMINE 50 MG/1 ML VIAL IM ONE ×2 (16:15→17:00)
[2019-07-13] MEDS ORDERED: HYDROMORPHONE 1 MG/1 ML DISP.SYRIN IM ONE ×2 (16:15→17:00)
--- NOTE | 2019-07-13 16:15 | NUR ---
Before giving the pain medicines, patient said," Just by looking at the syringes, I need more pain medicines." notified.
[2019-07-13] MEDS ORDERED: diphenhydrAMINE 50 MG/1 ML VIAL ONE ×2 (16:19→16:58)
[2019-07-13] MEDS ORDERED: HYDROMORPHONE 1 MG/1 ML DISP.SYRIN ONE ×2 (16:19→16:58)
[2019-07-13 16:41] LABS: HEMATOCRIT 30.7 % (31.2-41.9); HEMOGLOBIN 10.1 g/dL (10.9-14.3); MEAN CORPUSCULAR HGB CONC 33 g/dL (32.3-35.6); MEAN CORPUSCULAR VOLUME 97.3 fL (75.5-95.3); PLATELET COUNT (AUTO) 212 K/uL (179-408); RED BLOOD CELL COUNT(AUTO) 3.16 MIL/uL (3.63-4.92); WHITE BLOOD COUNT (AUTO) 10.5 K/uL (3.8-11.8)
--- NOTE | 2019-07-13 16:48 | NUR ---
Patient is resting comfortably on gurney, high liang's position, NAD, calm, breathing easily.
[2019-07-13 17:09] LABS: BAND % (MANUAL) 5 % (0-10); EOSINOPHILS % (MANUAL) 6 % (0-8); LYMPHOCYTES % (MANUAL) 49 % (20-40); MONOCYTES % (MANUAL) 8 % (2-10); NEUTROPHILS % (MANUAL) 32 % (42-75)
--- NOTE | 2019-07-13 17:09 | NUR ---
Patient discharged to home in stable conditon with slow steady gait. Written and verbal after care instructions given to patient. Patient verbalized understanding & compliance of instructions. [place] & juice given in the waiting room per patient's request.
== END 2019-07-13 17:09 | disposition home or self-care (01) ==
LOC: ER 16:01
DX: D57.00 Hb-SS disease with crisis, unspecified (principal); I50.9 Heart failure, unspecified; Z88.5 Allergy status to narcotic agent; Z79.01 Long term (current) use of anticoagulants; Z79.899 Other long term (current) drug therapy
CPT/HCPCS: 36415; 85007; 85025; 96372 ×4; 99283; J1170 ×2; J1200 ×2; 70030-TC; A4663

== ENCOUNTER 2019-10-28 13:07 | Emergency (ER) | payer MEDICARE, OTHER ==
[~2019-10-28] VITALS: Ht 162.6 cm; Wt 88.5 kg
--- NOTE | 2019-10-28 13:30 | NUR ---
PT PRESENTED TO ER W/ STEADY GAIT C/O SICKLE CELL PAIN. PT VERBALIZES .. "MY MEDICATION FINISHED AND JENNA BEEN IN PAIN FOR 3DAYS".PT SPEAKS IN COMPLETE SENTENCES, NO NEURO DEFICIT NOTED. NO CHEST PAIN, REGULAR HR AND RHYTHM. NO SOB , NORMAL LUNG SOUNDS.NO GI/ GYMPTOMS. PLACED PT ON BED ON LOWEST SETTING W/SIDE RAILS UPX2. CALL LIGHT W/IN REACH.FALL PRECAUTIONS IMPLEMENTED PER HOSPITAL POLICY.
[2019-10-28] MEDS ORDERED: HYDROCODONE/APAP 5-325MG TABLET PO ONE (13:45)
[2019-10-28] MEDS ORDERED: HYDROCODONE/APAP 5-325MG TABLET ONE (13:50)
--- NOTE | 2019-10-28 13:59 | NUR ---
LAB IN ROOM.
[2019-10-28 14:19] LABS: HEMATOCRIT 29.9 % (31.2-41.9); HEMOGLOBIN 9.9 g/dL (10.9-14.3); MEAN CORPUSCULAR HEMOGLOBIN 30.8 uug (24.7-32.8); MEAN CORPUSCULAR HGB CONC 33 g/dL (32.3-35.6); MEAN CORPUSCULAR VOLUME 92.8 fL (75.5-95.3); PLATELET COUNT (AUTO) 182 K/uL (179-408); RED BLOOD CELL COUNT(AUTO) 3.22 MIL/uL (3.63-4.92)
[2019-10-28 14:23] LABS: CREATININE 1.1 mg/dL (0.6-1.3); POTASSIUM 3.8 mmol/L (3.5-5.1)
[2019-10-28 14:29] LABS: BILIRUBIN,DIRECT 0.5 mg/dL (0.0-0.2); BILIRUBIN,TOTAL 1.4 mg/dL (0.2-1.0); TOTAL PROTEIN, SERUM 7.8 g/dL (6.4-8.2)
[2019-10-28 14:36] LABS: BAND % (MANUAL) 6 % (0-10); EOSINOPHILS % (MANUAL) 8 % (0-8); LYMPHOCYTES % (MANUAL) 42 % (20-40); MONOCYTES % (MANUAL) 12 % (2-10); NEUTROPHILS % (MANUAL) 32 % (42-75)
[2019-10-28] MEDS ORDERED: ONDANSETRON 4 MG/2 ML VIAL IM ONE (14:45)
[2019-10-28] MEDS ORDERED: HYDROMORPHONE 1 MG/1 ML DISP.SYRIN IM ONE (14:45)
[2019-10-28] MEDS ORDERED: HYDROMORPHONE 1 MG/1 ML DISP.SYRIN ONE (14:51)
--- NOTE | 2019-10-28 15:05 | NUR ---
Patient discharged to home in stable condition , walking w/steady gait. Written and verbal after care instructions given. Patient verbalizes understanding of instructions.Instructed not to drive, was told she will be taking the bus home. Stressed follow up or return to ER for worsening s/s.All belonging with patient.
[2019-10-28 15:28] VITALS: BP 132/91
== END 2019-10-28 14:55 | disposition home or self-care (01) ==
LOC: ER 13:13
DX: D57.00 Hb-SS disease with crisis, unspecified (principal); G89.29 Other chronic pain; F25.9 Schizoaffective disorder, unspecified; Z79.01 Long term (current) use of anticoagulants
CPT/HCPCS: 36415; 80048; 80076; 85007; 85025; 85730; 99284; J1170; 70030-TC; A4663